=== PATIENT | male | born 1930 | race Caucasian/White ===

== ENCOUNTER 2016-06-04 07:50 | Day surgery (SDC) | payer OTHER ==
[~2016-06-04] VITALS: Ht 182.9 cm; Wt 96.0 kg
[~2016-06-04 07:50] MED LIST: ASPIR 8181 M1 PO; ATORVASTATIN CA40 MG PO; CILOSTAZOL100 MG PO; CINNAMON500 MG PO; FISH OIL 1,0001 EAC7 PO; HUMALOG MI100 UNIT/5 SC; LEVOTHYROXINE100 MCG PO; METOPROLOL SUCC50 MG PO; MULTIPLE VITAM1 EAC1 PO; PROAIR HFA8.5 GM IH; VITAMIN D32000 UNI1 PO; ZESTORETIC 20-1 EAC1 PO
[2016-06-04 10:25] LABS: POINT-OF-CARE METER ID UU13113696; POINT-OF-CARE USER ID HMLCJM07
== END 2016-06-04 18:35 | disposition home or self-care (01) ==
LOC: CATH 07:50
PROVIDERS: Internal Medicine Cardiovascular Disease
DX: I25.118 Atherosclerotic heart disease of native coronary artery with other forms of angina pectoris (principal); I25.84 Coronary atherosclerosis due to calcified coronary lesion; I25.82 Chronic total occlusion of coronary artery; Z95.1 Presence of aortocoronary bypass graft; I13.0 Hypertensive heart and chronic kidney disease with heart failure and stage 1 through stage 4 chronic kidney disease, or unspecified chronic kidney disease; N18.3 Chronic kidney disease, stage 3 (moderate); E11.22 Type 2 diabetes mellitus with diabetic chronic kidney disease; E78.2 Mixed hyperlipidemia; R06.02 Shortness of breath; I70.219 Atherosclerosis of native arteries of extremities with intermittent claudication, unspecified extremity; Z87.891 Personal history of nicotine dependence; Z82.49 Family history of ischemic heart disease and other diseases of the circulatory system; G47.30 Sleep apnea, unspecified; J44.9 Chronic obstructive pulmonary disease, unspecified; E03.9 Hypothyroidism, unspecified
CPT/HCPCS: 82948; C1750; C1769; J1644; J1815; J2250; J3010